=== PATIENT | male | born 1995 | race Caucasian/White ===

== ENCOUNTER 2020-12-24 10:21 | Outpatient (REF) | payer BC, SELFPAY ==
[2020-12-24 12:08] LABS: Alanine Aminotransferase 22 U/L (0-40); Albumin Level 4.8 g/dL (3.5-5.0); Alkaline Phosphatase 89 U/L (39-117); Anion Gap 14 (12-20); Aspartate Amino Transferase 22 U/L (5-37); Bilirubin Total 0.5 mg/dL (0.0-1.0); Blood Urea Nitrogen 17 mg/dL (9-16); Calcium 9.2 mg/dL (8.4-10.2); Carbon Dioxide 26 mmol/L (22-29); Chloride 102 mmol/L (96-108); Cholesterol 163 mg/dL; Estimated Glomerular Filt Rate > 60; Glucose Fasting 83 mg/dL (60-99); HDL Cholesterol 34 mg/dL; LDL Cholesterol Calculated 113 mg/dl; Potassium 4.4 mmol/L (3.3-5.1); Sodium 138 mmol/L (135-145); TSH reflex Free T4 1.64 uIU/mL (0.32-4.0); Total Protein 7.4 g/dL (6.5-8.0); Triglycerides 81 mg/dL
[2020-12-28 17:31] LABS: Testosterone, Free 79.8 pg/mL (35.0-155.0); Testosterone, Total 409 ng/dL (250-1100)
== END 2020-12-24 10:22 | disposition home or self-care (01) ==
LOC: HO.HMGCLDS 10:21
PROVIDERS: PCP Nurse Practitioner Family; Visit Provider Nurse Practitioner Family
DX: Z00.00 Encounter for general adult medical examination without abnormal findings (principal); N52.1 Erectile dysfunction due to diseases classified elsewhere
CPT/HCPCS: 36415; 80053; 80061; 84402; 84403; 84443

== ENCOUNTER 2022-02-19 11:32 | Outpatient (REF) | payer BC, SELFPAY ==
--- NOTE | ~2022-02-19 | US_ITS ---
EXAMINATION: US ABDOMEN LIMITED CLINICAL INFORMATION: Abdominal bulge, suspect hernia. COMPARISON: None TECHNIQUE: Real-time imaging of midline epigastric area and superior to the umbilicus to the left as indicated by the patient. FINDINGS: Limited imaging to the epigastric midline region reveals subtle hypoechoic nonvascular area measuring 1.8 x 1.0 x 1.8 cm. There is isoechoic to surrounding subcutaneous fat. There is no evidence of hernia seen. US/US abdomen limited IMPRESSION: Likely small lipoma in the epigastric midlung region corresponding to the palpable area as per patient. It is avascular.
== END 2022-02-19 11:33 | disposition home or self-care (01) ==
LOC: HO.HMGCX 11:32
PROVIDERS: PCP Nurse Practitioner Family; Visit Provider Nurse Practitioner Family
DX: K45.8 Other specified abdominal hernia without obstruction or gangrene (principal)
CPT/HCPCS: 76705

== ENCOUNTER 2023-11-25 08:54 | Outpatient (AMB) | payer OTHER, SELFPAY ==
--- NOTE | 2023-11-25 09:04 | MHC.PC.OV ---
Vital Signs 11/25/23 09:05 Height 5 ft 10 in Weight 238 lb 4 oz BMI 34.2 BP 110/70 Blood Pressure Location Lt brachial Position Sitting Pulse 89 Pulse Source Pulse Oximeter Pulse Oximetry (%) 97 Oxygen Delivery Method Room Air Intake Visit Reasons: Annual PE Intake Note: Pt is here for his Annual PE Allergies No Known Allergies Allergy (Verified 11/25/23 09:07) Medication List - Last Reconciled 11/25/23 by GIOVANY Paige testosterone cypionate 125 mg IM QWEEK Tobacco use date assessed: 11/25/23 Dental Screening Dental Screen Date: 11/25/23 Did you have a dental visit in the last 12 months?: Yes Did you have a dental problem in the last 6 months where you did not have access to dental care?: No Was dental information given to patient?: Patient has dentist HPI Annual PE HPI Details Pt is here for a PE. Will order labs. [facility] Social History Housing: House Alcohol intake: current Alcohol intake frequency: holidays/special occasions only Patient Tobacco Use Status: Never used Tobacco e-Cigarette/Vaping Use: Never Used service: No Current occupational status: employed Current occupation: [employer] Current occupational exposures/hazards: Yes Cognitive needs: No Hearing needs: No Vision needs: No Questionnaire PHQ-9 Over the last 2 weeks, how often have you been bothered by any of the following problems? 1. Little interest or pleasure in doing things: not at all 2. Feeling down, depressed, or hopeless: not at all 3. Trouble falling or staying asleep, or sleeping too much: not at all 4. Feeling tired or having little energy: not at all 5. Poor appetite or overeating: not at all 6. Feeling bad about yourself - or that you are a failure or have let yourself or your family down: not at all 7. Trouble concentrating on things, such as reading the newspaper or watching television: not at all 8. Moving or speaking so slowly that other people could have noticed. Or the opposite - being so fidgety or restless that you have been moving around a lot more than usual: not at all 9. Thoughts that you would be better off or of hurting yourself in some way: not at all Total score: 0 Source: Developed by Drs. Ruddy Serrano, Yandel Grimes and colleagues, with an educational naheed from [employer]. Thrive Questionnaire Date Thrive assessed: 11/25/23 I am a: Patient What is your living situation today?: I have a steady place to live Within the past 12 months, did the food you bought not last and you didn't have the money to get more?: Never true Within the past 12 months, did you worry whether your food would run out before you got money to buy more?: Never true Do you have trouble paying for medicines?: No Do you have trouble getting transportation to medical appointments?: No Do you have trouble paying your heating and electricity bill?: No Do you have trouble taking care of your child, family member or friend?: No Do you have trouble with day-to-day activities such as bathing, preparing meals, shopping, managing finances, etc.?: No Are you currently unemployed and looking for a job?: No Are you interested in more education?: No THRIVE Score: 0 AUDIT C Alcohol Use Questionnaire (AUDIT-C) 1. How often do you have a drink containing alcohol?: 2-4 times a month 2. How many drinks containing alcohol do you have on a typical day when you are drinking?: 5 or 6 3. How often do you have six or more drinks on one occasion?: Monthly Total Score: 6 CASEY-7 AMB Questionnaire CASEY-7 Date CASEY - 7 assessed: 11/25/23 Feeling nervous, anxious, or on edge: 0 = Not at all Not being able to stop or control worryin = Not at all Worrying too much about different things: 0 = Not at all Trouble relaxin = Not at all Being so restless that it is hard to sit still: 0 = Not at all Becoming easily annoyed or irritable: 0 = Not at all Feeling afraid as if something awful might happen: 0 = Not at all Total CASEY-7 score (0-4 normal; 5-9 mild; 10-14 moderate; 15-21 severe): 0 Source: Developed by Theresa Calvin Kurt Kroenke and colleagues, with an educational naheed from [employer]. Review of Systems Const Denies chills and Denies fever(s) Eyes Denies blurry vision ENT Denies vertigo, Denies dizziness and Denies sore throat Card Denies chest pain at rest, Denies chest pain with activity, Denies diaphoresis, Denies dyspnea and Denies dyspnea on exertion Resp Denies cough, Denies dyspnea, Denies dyspnea on exertion and Denies wheezing GI Denies abdominal pain, Denies melena, Denies hematochezia, Denies constipation, Denies diarrhea and Denies loose stools Denies hematuria Musc Denies numbness and Denies tingling Skin/Breast Denies lesions Neuro Denies vertigo, Denies dizziness, Denies numbness and Denies tingling Psych Denies anxiety, Denies depression, Denies homicidal ideation, Denies suicidal ideation and Denies other (substance abuse) Aller/Immun Denies wheezing Physical exam (Primary Care) Vital Signs: Last Vital Signs Pulse 89 11/25/23 09:05 BP 110/70 11/25/23 09:05 Pulse Ox 97 11/25/23 09:05 Oxygen Delivery Method Room Air 11/25/23 09:05 BMI result Body Mass Index 34.2 Tobacco/Smoking Status: Tobacco use Status Tobacco use date assessed 11/25/23 11/25/23 09:11 Patient Tobacco Use Status Never used Tobacco 11/25/23 09:11 e-Cigarette/Vaping Use Never Used 11/25/23 09:11 Const General: cooperative Nutritional Appearance: well nourished Orientation/consciousness: patient oriented x3 HENMT Head: Yes normal to inspection, Yes normocephalic and Yes atraumatic Ears: TM's normal bilaterally Eyes General: appearance normal, both eyes and all related structures Alignment and Position: alignment normal and position normal Neck Neck: Yes normal visual inspection and Yes no lymphadenopathy Thyroid: Thyroid normal Resp Effort & Inspection: normal respiratory effort Auscultation: clear to auscultation bilaterally Cardio Rate: regular rate Rhythm: regular rhythm Heart sounds: S1 normal heart sound present, S2 normal heart sound present and no murmurs GI Palpation (GI): Soft to palpation and nontender Auscultation: normal bowel sounds Male General Exam: Yes normal external exam Penis: normal penis Scrotum: scrotum normal, testes descended bilaterally and no inguinal hernias Testes: no testicular mass Skin Other: scalp cysts noted x4 Rashes: no rashes Neuro General: patient oriented x3, moves all extremities, no focal motor deficits and deep tendon reflexes 2+ bilaterally Romberg Test: Negative Psych Appearance: grossly normal Mental Status: mental status grossly normal Speech and movement: Normal speech and movement present Affect: normal affect Attitude: cooperative Thought process: Normal thought process present Thought content: Normal thought content present Insight: Good insight present (Psych) Judgement: Good judgement present (Psych) Assessment and Plan Assessment & Plan (1) Physical exam: Code(s): Z00. - Encounter for general adult medical examination without abnormal findings Plan: Labs ordered (2) Scalp cyst: Code(s): L72.9 - Follicular cyst of the skin and subcutaneous tissue, unspecified Plan: Referred to general surgery Plan The patient agreed to the use of a medical delivery driver for this encounter. Scribed for GIOVANY Hagan by Amarilys Nava medical delivery driver, on 11/25/2023 at 09:15 EST. Orders: Orders Complete Blood Count Auto Diff Today Z.00 - Encounter for general adult medical examination without abnormal findings UA CC w/rflx Micro + Cult Today Z. - Encounter for general adult medical examination without abnormal findings Lipid Panel Today Z00. - Encounter for general adult medical examination without abnormal findings Complete Blood Count Auto Diff 11 Months Z. - Encounter for general adult medical examination without abnormal findings UA CC w/rflx Micro + Cult 11 Months Z. - Encounter for general adult medical examination without abnormal findings Lipid Panel 11 Months . - Encounter for general adult medical examination without abnormal findings Comprehensive [place]. Panel Fast Today .00 - Encounter for general adult medical examination without abnormal findings TSH reflex Free T4 Today Z.00 - Encounter for general adult medical examination without abnormal findings Comprehensive [place]. Panel Fast 11 Months . - Encounter for general adult medical examination without abnormal findings TSH reflex Free T4 11 Months Z. - Encounter for general adult medical examination without abnormal findings Referrals General Surgery Referral L72.9 - Follicular cyst of the skin and subcutaneous tissue, unspecified Coding Level of Care Code Est Pt Prev Care 18-39y(96958) Diagnoses Physical exam Z. Scalp cyst L72.9
[2023-11-25 09:05] VITALS: BP 110/70; PULSE 89; O2SAT 97; BMI 34.2
== END 2023-11-25 09:30 | disposition home or self-care (01) ==
PROVIDERS: PCP Nurse Practitioner Family; Visit Provider Nurse Practitioner Family
DX: Z00.00 Encounter for general adult medical examination without abnormal findings (principal); L72.9 Follicular cyst of the skin and subcutaneous tissue, unspecified
CPT/HCPCS: 99395

== ENCOUNTER 2023-12-21 09:41 | Outpatient (REF) | payer OTHER, SELFPAY | END 2023-12-21 09:42 | disposition home or self-care (01) | LOC: HO.LNP 09:41 | PROVIDERS: PCP Nurse Practitioner Family; Referring Provider Nurse Practitioner Family; Visit Provider Surgery | DX: L72.11 Pilar cyst (principal) | CPT/HCPCS: 11421; 11422; 88304 ==

== ENCOUNTER 2023-12-21 09:41 | Outpatient (AMB) | payer OTHER, SELFPAY ==
--- NOTE | 2023-12-21 09:49 | MHC.OFFVIS ---
Intake Vital Signs 12/21/23 09:55 Height 5 ft 10 in Weight 236 lb BMI 33.9 BP 142/65 H Blood Pressure Location Rt brachial Position Sitting Pulse 77 Intake Visit Reasons: Scalp cyst Intake Note: Patient referred by PCP Dr. Hodgson for scalp cyst. Present for yrs. Patient c/o: enlarging, painful when hit with comb. 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 He has had these several years time. They are increasing in size and becoming more set dramatic. He would like to have them removed. Chart was reviewed and patient evaluated [facility] Medical History (Updated 12/21/23 @ 09:54 by TANYA Aguilar) Boxer's fracture Social History Housing: House Alcohol intake: current Alcohol intake frequency: holidays/special occasions only Patient Tobacco Use Status: Never used Tobacco e-Cigarette/Vaping Use: Never Used service: No Current occupational status: employed Current occupation: [employer] Current occupational exposures/hazards: Yes Cognitive needs: No Hearing needs: No Vision needs: No Physical Exam Vital Signs: Last Vital Signs Pulse 77 12/21/23 09:55 BP 142/65 H 12/21/23 09:55 BMI result Body Mass Index 33.9 HEENT Other: Vertex of scalp to by 2 cm pilar cyst and right posterior scalp 2 x 1 cm pilar cyst Office Procedures Excision Details: Risks, benefits, alternatives of excision of scalp pilar cyst/1 x 2 were reviewed with the patient and included but not limited to bleeding, infection, recurrence, numbness, pain, scarring the patient was to proceed. Consent signed. After appropriate positioning, patient underwent 1% lidocaine and Betadine prep of the 2 cysts 1 of the vertex and 1 right posterior. The former measured approximately 2 x 2 cm, the latter approximate 2 x 1 cm. Each was incised, uneventfully enucleated, and sent to pathology. Each wound was irrigated, secured hemostasis, and closed using interrupted 2-0 Prolene suture followed by bacitracin. Patient tolerated procedure well. 59368-Hxpgzmra scalp/neck/hands/feet/genitalia 0.6cm-1cm 19124-Symnjncl scalp/neck/hands/feet/genitalia 1.1cm-2cm Procedure code (CPT) selection complete Office Meds lidocaine 1 %-epinephrine 1:100,000 injection solution Performing Provider: Marshall Higuera MD Performing Location: [facility] Administered by: Marshall Higuera MD on 12/21/23 10:44 Dose Route Admin Location Dispensed Lot Number Expiration Date [facility] Bottle Machine Operator 10 mL Infiltration 10 mL Assessment & Plan Assessment & Plan (1) Pilar cyst of scalp: Code(s): L72.11 - Pilar cyst Plan: Patient has been given local wound instructions, and will follow-up as directed or p.r.n.. Orders: Orders Surgical Today L72.11 - Pilar cyst AMB Excision Today L72.11 - Pilar cyst Coding Level of Care Code New Pt Level 5 (34758) Diagnoses Pilar cyst of scalp L72.11 CPT Codes Scalp/Neck/Hands/Feet/Genetalia - CPT: 29224-Nfwqpqxh scalp/neck/hands/feet/genitalia 0.6cm-1cm ([id number]) Scalp/Neck/Hands/Feet/Genetalia - CPT: 11447-Hkanhmzr scalp/neck/hands/feet/genitalia 1.1cm-2cm ([id number])
[2023-12-21 09:55] VITALS: BP 142/65; PULSE 77; BMI 33.9
== END 2023-12-21 10:14 | disposition home or self-care (01) ==
PROVIDERS: PCP Nurse Practitioner Family; Referring Provider Nurse Practitioner Family; Visit Provider Surgery
DX: L72.11 Pilar cyst (principal)
CPT/HCPCS: 11421; 11422; 99204

== ENCOUNTER 2023-12-30 13:41 | Outpatient (AMB) | payer OTHER, SELFPAY ==
[2023-12-30 13:48] VITALS: BP 132/88; PULSE 88
--- NOTE | 2023-12-30 13:48 | MHC.OFFVIS ---
Intake Vital Signs 12/30/23 13:48 Weight 235 lb 0.204 oz BP 132/88 Blood Pressure Location Rt brachial Position Sitting Pulse 88 Intake Visit Reasons: S/P Scalp cyst excision Intake Note: Patient here s/p exc of cyst on scalp. Reports incision healing well. Patient c/o: itch along suture placement. Denies bleeding, tenderness. 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 He has no wound issues or complaints. Pathology is benign REPLACED BY [facility] Medical History Boxer's fracture Social History Housing: House Alcohol intake: current Alcohol intake frequency: holidays/special occasions only Patient Tobacco Use Status: Never used Tobacco e-Cigarette/Vaping Use: Never Used service: No Current occupational status: employed Current occupation: [employer] Current occupational exposures/hazards: Yes Cognitive needs: No Hearing needs: No Vision needs: No Physical Exam Vital Signs: Last Vital Signs Pulse 88 12/30/23 13:48 BP 132/88 12/30/23 13:48 HEENT Other: Patient underwent uneventful suture removal of both lesions. Assessment & Plan Assessment & Plan (1) Pilar cyst of scalp: Code(s): L72.11 - Pilar cyst Plan Patient has been given local instructions, and will follow-up p.r.n.. All questions answered. Coding Level of Care Code Global (60157) Diagnoses Pilar cyst of scalp L72.11
== END 2023-12-30 13:53 | disposition home or self-care (01) ==
PROVIDERS: PCP Nurse Practitioner Family; Visit Provider Surgery
DX: L72.11 Pilar cyst (principal)
CPT/HCPCS: 99024

== ENCOUNTER → 2023-12-30 13:41 | Outpatient (BNVA) | payer OTHER, SELFPAY | PROVIDERS: PCP Nurse Practitioner Family; Visit Provider Surgery ==

== ENCOUNTER 2024-09-30 08:18 | Outpatient (REF) | payer OTHER, SELFPAY ==
[2024-09-30 10:01] LABS: MANUAL DIFF FLAG NO
[2024-09-30 10:06] LABS: Basophils Percent Auto 0.1 % (0-2); Eosinophils Absolute Auto 0.1 X10*3/uL (0.0-0.4); Eosinophils Percent Auto 2.1 % (0-4); Hematocrit 49.4 % (42.0-52.0); Hemoglobin 17.4 g/dl (14.0-18.0); Imm Gran Abs Auto 0.03 X10*3/uL (0.00-0.03); Imm Gran Pct Auto 0.4 % (0.0-0.4); Lymphocytes Percent Auto 29.6 % (20-40); Mean Corpuscular HGB Conc 35.2 g/dl (31.0-36.0); Mean Corpuscular Hemoglobin 31.5 pg (27.0-33.0); Mean Corpuscular Volume 89.5 fL (80.0-98.0); Mean Platelet Volume 8.8 fL (9.4-12.4); Monocytes Absolute Auto 0.5 X10*3/uL (0.1-1.2); Monocytes Percent Auto 7.9 % (2-11); Neutrophils Percent Auto 59.9 % (45-73); Platelet Count 313 X10*3/uL (160-400); Red Blood Count 5.52 X10*6/uL (4.60-5.80); Red Cell Distribution Width 11.9 % (11.0-16.0); White Blood Count 6.7 X10*3/uL (4.8-10.8)
[2024-09-30 10:13] LABS: Appearance Urine Clear; Color Urine Yellow; Glucose Urine UA Negative (Negative); Leukocyte Esterase Urine Negative (Negative); Nitrite Urine Negative (Negative); PH 6.5 (5.0-9.0); Urine Blood Negative (Negative); Urine Ketones Negative (Negative); Urine Protein Negative (Neg-Trace)
[2024-09-30 10:26] LABS: Alanine Aminotransferase 33 U/L (0-40); Albumin Level 4.5 g/dL (3.5-5.0); Alkaline Phosphatase 46 U/L (39-117); Anion Gap 9 (12-20); Aspartate Amino Transferase 20 U/L (5-37); Blood Urea Nitrogen 16 mg/dL (9-16); Carbon Dioxide 28 mmol/L (22-29); Chloride 104 mmol/L (96-108); Cholesterol 172 mg/dL (<200); Estimated Glomerular Filt Rate > 60; Glucose Fasting 94 mg/dL (60-99); HDL Cholesterol 37 mg/dL (>40); LDL Cholesterol Calculated 123 mg/dL (<100); Potassium 4.3 mmol/L (3.3-5.1); Sodium 137 mmol/L (135-145); Total Protein 7.5 g/dL (6.5-8.0); Triglycerides 60 mg/dL (<150)
[2024-09-30 10:41] LABS: TSH reflex Free T4 1.53 uIU/mL (0.32-4.0)
== END 2024-09-30 08:19 | disposition home or self-care (01) ==
LOC: HO.HMGCLDS 08:18
PROVIDERS: PCP Nurse Practitioner Family; Visit Provider Internal Medicine
DX: F22 Delusional disorders (principal); F41.0 Panic disorder [episodic paroxysmal anxiety]; T88.7XXA Unspecified adverse effect of drug or medicament, initial encounter
CPT/HCPCS: 36415; 80053; 80061; 81003; 84443; 85025

== ENCOUNTER 2024-09-30 08:18 | Outpatient (AMB) | payer OTHER, SELFPAY ==
[2024-09-30 08:21] VITALS: BP 128/76; PULSE 88; O2SAT 97; BMI 34.1
--- NOTE | 2024-09-30 08:27 | AM.OFFWIN_ITS ---
Intake Vital Signs 09/30/24 08:21 Height 5 ft 10 in Weight 237 lb 6 oz BMI 34.1 BP 128/76 Pulse 88 Pulse Source Pulse Oximeter Pulse Oximetry (%) 97 Oxygen Delivery Method Room Air Intake Visit Reasons: EP anxiety Patient Tobacco Use Status: Never used Tobacco Allergies prednisone Adverse Reaction (Verified 09/30/24 08:28) anxiety Medication List - Last Reconciled 09/30/24 by Anjana Avalos MD lorazepam 1 mg PO QID PRN Do you need a note to return to daycare/school/sports/work: Yes HPI EP anxiety HPI Details Chief Complaint Patient reports severe anxiety and paranoid thoughts following prednisone treatment. History of Present Illness - The patient is a 29-year-old male pres enting with prednisone-induced psychiatric symptoms. - Initial treatment for an upper respira tory infection involved prednisone, azithromycin, and an albuterol inhaler. - Severe anxiety and sensations of paran oia ensued upon initiation of prednisone, causing psychological distress. - Prescribed lorazepam through [facility] emergency room where patient presented after having severe paranoia, provided temporary relief; however, symptoms of anxiety persisted following cessation. 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 Review of Systems - Psychiatric: Reports severe anxiety an d paranoia, sensation of auditory hallucinations. - Neurologic: Denies history of panic at tacks prior to this episode. 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 Constitutional: No fever no chills Respiratory: no Cough, no shortness a breath Cardiovascular: no palpitations, no chest pains gastrointestinal: No nausea no vomiting no diarrhea FISHER HAND LINE: No headache no blurring of vision skin: No rash back: No CVAT extremities: As per history Plan The management plan focuses on addressing prednisone-induced psychiatric symptoms by discontinuation of prednisone and initiating aripiprazole for paranoia and anxiety. Lorazepam provided symptom relief but is not advised for long-term use. A low-dose aripiprazole regimen will assess effectiveness and alleviate symptoms, continuing for a week before reassessment. The patient is advised to abstain from alcohol and other substances. An extended work note is provided to accommodate symptom management. Expected outcome is symptom resolution without persistent effects post prednisone treatment, emphasizing careful monitoring of psychiatric stability. Patient already has a lab order through his primary care that needs to be done fasting, patient reminded He is also on testosterone supplement through Urology. [facility] Medical History Ocular migraine Boxer's fracture Social History Housing: House Alcohol intake: current Alcohol intake frequency: holidays/special occasions only Patient Tobacco Use Status: Never used Tobacco e-Cigarette/Vaping Use: Never Used service: No Current occupational status: employed Current occupation: [employer] Current occupational exposures/hazards: Yes Cognitive needs: No Hearing needs: No Vision needs: No Review of Systems Const All systems reviewed & are unremarkable except as noted in HPI and below Physical Exam Vital Signs: Last Vital Signs Pulse 88 09/30/24 08:21 BP 128/76 09/30/24 08:21 Pulse Ox 97 09/30/24 08:21 Oxygen Delivery Method Room Air 09/30/24 08:21 BMI result Body Mass Index 34.1 Const General: no acute distress Orientation/consciousness: patient oriented x3 Eyes General: appearance normal, both eyes and all related structures Resp Effort & Inspection: normal respiratory effort and able to speak in complete sentences Auscultation: clear to auscultation bilaterally Cardio Other: S1 S2 Neuro General: patient oriented x3 Psych Other: Tearful telling his symptoms, tells me that he is afraid, and this morning felt as if his dog is talking to him, having paranoia Mental Status: mental status grossly normal Assessment & Plan Assessment & Plan (1) Acute paranoia: Code(s): F22 - Delusional disorders (2) Panic anxiety syndrome: Code(s): F41.0 - Panic disorder [episodic paroxysmal anxiety] (3) Medication side effect: Code(s): T88.7XXA - Unspecified adverse effect of drug or medicament, initial encounter Plan Chief Complaint Patient reports severe anxiety and paranoid thoughts following prednisone treatment. History of Present Illness - The patient is a 29-year-old male presenting with prednisone-induced psychiatric symptoms. - Initial treatment for an upper respiratory infection involved prednisone, azithromycin, and an albuterol inhaler. - Severe anxiety and sensations of paranoia ensued upon initiation of prednisone, causing psychological distress. - Prescribed lorazepam through [facility] emergency room where patient presented after having severe paranoia, provided temporary relief; however, symptoms of anxiety persisted following cessation. 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 Review of Systems - Psychiatric: Reports severe anxiety and paranoia, sensation of auditory hallucinations. - Neurologic: Denies history of panic attacks prior to this episode. - General: Reports disrupted sleep schedule due to night-shift work. Constitutional: No fever no chills Respiratory: no Cough, no shortness a breath Cardiovascular: no palpitations, no chest pains gastrointestinal: No nausea no vomiting no diarrhea FISHER HAND LINE: No headache no blurring of vision skin: No rash back: No CVAT extremities: As per history Plan The management plan focuses on addressing prednisone-induced psychiatric symptoms by discontinuation of prednisone and initiating aripiprazole for paranoia and anxiety. Lorazepam provided symptom relief but is not advised for long-term use. A low-dose aripiprazole regimen will assess effectiveness and alleviate symptoms, continuing for a week before reassessment. The patient is advised to abstain from alcohol and other substances. An extended work note is provided to accommodate symptom management. Expected outcome is symptom resolution without persistent effects post prednisone treatment, emphasizing careful monitoring of psychiatric stability. Patient already has a lab order through his primary care that needs to be done fasting, patient reminded He is also on testosterone supplement through Urology. Medications: New aripiprazole (Abilify) 2 mg PO BEDTIME 7 tabs 0RF lorazepam 1 mg PO BID 7 days PRN 14 tabs 0RF anxiety Coding Level of Care Code Est Pt Level 4 (27043) Diagnoses Acute paranoia F22 Panic anxiety syndrome F41.0 Medication side effect T88.7XXA
== END 2024-09-30 09:29 | disposition home or self-care (01) ==
PROVIDERS: PCP Nurse Practitioner Family; Visit Provider Internal Medicine
DX: T88.7XXA Unspecified adverse effect of drug or medicament, initial encounter (principal)

== ENCOUNTER 2024-11-07 12:54 | Outpatient (AMB) | payer OTHER, SELFPAY ==
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
[2024-11-07 14:05] VITALS: BP 126/80; PULSE 100; O2SAT 98
== END 2024-11-07 15:24 | disposition home or self-care (01) ==
PROVIDERS: PCP Nurse Practitioner Family; Visit Provider Physician Assistant
DX: F41.0 Panic disorder [episodic paroxysmal anxiety] (principal)

== ENCOUNTER 2024-11-14 10:13 | Outpatient (AMB) | payer OTHER, SELFPAY ==
--- OUTSIDE RECORDS SUMMARY | 2024-11-14 10:17 | XMS_ITS | Clinical Summary ---
Author Organization [facility] Address [address] [place] [address] Care Team Providers Care Business Office Specialist Name Role Phone Nano Hammer MD Primary Care Provider Vannessa atkinson Surgical History Surgery Date Site/Laterality Comments HAND SURGERY 10/12 Right PROCEDURE: HISTORICAL HAND SURGERY; COMMENT: fracture 4th and 5th metacarpal Medical History Medical History Date Comments Pneumonia DX:Pneumonia; CO MMENT: 09/03 Chest pain 03/20/2009 DX:Chest pain; C OMMENT: neg EKG and cardiology eval 2004 GERD (gastroesophageal reflux disease) 03/20/2009 DX:GERD (gastroesophageal reflux disease); COMMENT: prevacid 2006 Dysuria 03/20/2009 DX:Dysuria; COMM ENT: see resolved problems Sleep disorder 06/16/2012 DX:Sleep disorde r; COMMENT: see resolved Concussion 07/09 DX:Concussion; C OMMENT: mild, football Influenza A 11/10 DX:Influenza A Hyperhidrosis 06/16/2012 DX:Hyperhidrosis ; COMMENT: Xerac ac 06/08 Allergic rhinitis 03/20/2009 DX:Allergic rh initis; COMMENT: claritin 2001 Dr veras - neg skin tests 05/31 Asthma 11/12/2011 DX:Asthma; COMME NT: On singulair and flovent, d/c'd 05/30, restarted 08/29, changed to pulmicort and [id number]/02, back to flovent and singulair 09/30, off controllers since 2004 Po steroids 08/29 x [address] veras 05/31 11/09 - with sinusitis (prednisone) Flovent started 04/08 for exercise intolerance, singulair added 3 wks later; stopped flovent 06/09 10/10 - off singulair; resta* Fracture of hand, multiple sites 10/12 DX:Fracture of hand, multiple sites; COMMENT: R hand, fx 4th and 5th metacarpal, open redution and fixation Family History Medical History Relation Name Comments Diabetes Maternal Grandfather Heart attack Maternal Grandfather Breast cancer Maternal Grandmother Relation Name Status Comments Brother Alive Antonino Edgar Maternal Grandfather Maternal Grandmother Mother Alive Bev Social History Tobacco Use Types Packs/Day Years Used Date Smoking Tobacco: Never Alcohol Use Standard Drinks/Week Comments Not Asked 0 (1 standard drink = 0.6 oz pur e alcohol) Sex and Gender Information Value Date Recorded Sex Assigned at Not on file Legal Sex Male 8:03 AM EST Gender Identity Not on file Sexual Orientation Not on file Obstetrics History Plan of Treatment Health Maintenance Due Date Last Done Comments DTaP,Tdap,and Td Vaccines (7 - Td or Tdap) 04/24/2019 04/24/2009, 05/03/2001, 11/03/1997, Additional history exists COVID-19 Vaccine ( season) 2024 Influenza Vaccine (#1) 2024 4, 08/17/2013, 06/18/2012, Additional history exists Hepatitis B Vaccines Completed 03/07/1997, 1996, 1996 HIB Vaccines Completed 11/03/1997, 10/1996, 1996, Additional history exists IPV Vaccines Completed 05/03/2001, 02/1998, 08/17/1997, Additional history exists MMR Vaccines Completed 01/25/2002, 08/17/1997 Varicella Vaccines Completed 04/24/2009, 11/03/1997 Meningococcal ACWY Vaccine Completed 08/17/2013, HPV Vaccines Aged Out No longer eligi ble based on patient's age to complete this topic Hepatitis A Vaccines Aged Out No long er eligible based on patient's age to complete this topic Meningococcal B Vacine Aged Out No lo nger eligible based on patient's age to complete this topic Pneumococcal Vaccine: Pediatrics (0 to 5 Years) and At-Risk Patients (6 to 64 Years) Aged Out No longer eligible based on patient's age to complete this topic RSV Immunization Patients Under 20 months Aged Out No longer eligible based on patient's age to complete this topic Care Teams Business Office Specialist Relationship Specialty Start Date End Date Nano Hammer MD PCP - General 03/13/09
[2024-11-14 10:19] VITALS: BP 126/80; PULSE 92; RESP 16; TEMP 36.7; O2SAT 98; BMI 34.4
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
== END 2024-11-14 11:16 | disposition home or self-care (01) ==
PROVIDERS: PCP Nurse Practitioner Family; Visit Provider Nurse Practitioner Family
DX: F43.10 Post-traumatic stress disorder, unspecified (principal)

== ENCOUNTER → 2024-11-14 10:13 | Outpatient (BNVA) | payer OTHER, SELFPAY | PROVIDERS: PCP Nurse Practitioner Family; Visit Provider Nurse Practitioner Family | DX: F43.10 Post-traumatic stress disorder, unspecified (principal) | CPT/HCPCS: 96127 ==

== ENCOUNTER 2025-01-04 08:23 | Outpatient (AMB) | payer OTHER, SELFPAY ==
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
[2025-01-04 08:26] VITALS: BP 122/78; PULSE 86; O2SAT 98; BMI 34.9
--- OUTSIDE RECORDS SUMMARY | 2025-01-04 08:33 | XMS_ITS | Clinical Summary ---
Author Organization [facility] Address [address] [place] [address] Care Team Providers Care Child Welfare Caseworker Name Role Phone Nano Hammer MD Primary [...] 05/30, restarted 08/29, changed to pulmicort and [id number], back to flovent and singulair 09/30, off [...] Grandmother Relation Name Status Comments Brother Alive Antonion Edgar Maternal Grandfather Maternal Grandmother Mother Alive [...] age to complete this topic Meningococcal B Vaccine Aged Out No l onger eligible based on patient's age to complete this topic Pneumococcal Vaccine: Pediatrics (0 to 5 Years) and At-Risk Patients (6 to 64 Years) Aged Out No longer eligible based on patient's age to complete this topic RSV Immunization Patients Under 20 months Aged Out No longer eligible based on patient's age to complete this topic Care Teams Child Welfare Caseworker Relationship Specialty Start Date End Date Nano Hammer MD PCP - General 03/13/09
== END 2025-01-04 09:01 | disposition home or self-care (01) ==
LOC: HO.HMCC 08:24
PROVIDERS: PCP Nurse Practitioner Family; Visit Provider Nurse Practitioner Family
DX: F43.10 Post-traumatic stress disorder, unspecified (principal); Z00.00 Encounter for general adult medical examination without abnormal findings

== ENCOUNTER → 2025-01-04 08:23 | Outpatient (BNVA) | payer OTHER, SELFPAY | PROVIDERS: PCP Nurse Practitioner Family; Visit Provider Nurse Practitioner Family | DX: Z13.89 Encounter for screening for other disorder (principal) ==